=== PATIENT | female | born 1985 | race African-American/Black ===

== ENCOUNTER 2017-03-17 11:56 | Emergency (ER) | payer OTHER ==
[~2017-03-17] VITALS: Ht 154.9 cm; Wt 90.9 kg
[~2017-03-17 11:56] MED LIST: DEPA500T PO
[2017-03-17 11:58] VITALS: BP 143/94; PULSE 88; RESP 20; TEMP 98.9; O2SAT 99
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
[2017-03-17] MEDS ORDERED: MICO2CRE34 TOPICAL (12:56)
[2017-03-17] MEDS ORDERED: BACT2OIN TOPICAL (12:56)
--- NOTE | 2017-03-17 13:10 | PD ---
HPI Chief Complaint: Psychiatric Symptoms Time Seen by Provider: 13:05 Travel History International Travel<30 days: No Contact w/Intl Traveler<30days: No Traveled to known affect area: No History of Present Illness HPI 31-year-old female that presents to the ED for evaluation of rash to her tights as well as psych evaluation. Patient reports that for the past week she's been having a rash that is somewhat painful and itchy on her inner thighs. Per patient she's not sure this is related to her legs rubbing against each other or an infection or something else. Per patient the room getting better and that she's been applying OTC creams. She denies any injuries. No fevers chills or sweats. Per patient she is also here because she's been having issues secondary to her cheating on her. Apparently she is concerned that the mother of the girlfriend my be drained to come against her. She will likely to talk to him "better appears ". Per patient she was to be evaluated by psychiatry. She does have a history of anxiety. She denies any other medical process. No homicidal or suicidal ideation. Patient just wants to talk to psychiatry. Pain per patient is 2 out of 10 with touch. PFSH Past Medical History Anxiety: Yes Diminished Hearing: No Schizophrenia: Yes ?: Not LMP: 03/10/2017 : 2 : 2 Past Surgical History Abdominal Surgery: Yes (HERNIA REPAIR x 2) Other Surgery: Yes (HERNIA SURGERY X2) Social History Alcohol Use: No Tobacco Use: No Substance Use: No Allergies-Medications (Allergen,Severity, Reaction): Coded Allergies: Phenergan (Verified Allergy, Severe, Tachycardia, 03/17/17) Reported Meds & Prescriptions Reported Meds & Active Scripts Active Miconazole Topical 2% Cream 1 Applic TOPICAL BID 14 Days Bactroban Topical (Mupirocin) 2% Oint 1 Appl TOPICAL BID [address] (Divalproex Sodium) 500 Mg Tabdr 500 Mg PO BID Review of Systems Except as stated in HPI: all other systems reviewed are Neg Physical Exam Narrative GENERAL: SKIN: Warm and dry. HEAD: Atraumatic. Normocephalic. EYES: Pupils equal and round. No scleral icterus. No injection or drainage. ENT: No nasal bleeding or discharge. Mucous membranes pink and moist. Tongue is midline. No uvula deviation. NECK: Trachea midline. No JVD. CARDIOVASCULAR: Regular rate and rhythm. No murmurs, S3, S4. RESPIRATORY: No accessory muscle use. Clear to auscultation. Breath sounds equal bilaterally. GASTROINTESTINAL: Abdomen soft, non-tender, nondistended. Hepatic and splenic margins not palpable. MUSCULOSKELETAL: Extremities without clubbing, cyanosis, or edema. No obvious deformities. Full range of motion of the upper and lower extremities bilaterally. 2+ pulses bilaterally. Patient does have what appears to be a pruritic rash on the inner thighs bilaterally. More significant on the left side. Almost appears to follow the follicles of the hair and does have a look of scratching as well as possible insect bites. Somewhat tender also pruritic. No sign of purulence or mass. Not noted anywhere else. NEUROLOGICAL: Awake and alert. No obvious cranial nerve deficits. Motor grossly within normal limits. Five out of 5 muscle strength in the arms and legs. Normal speech. PSYCHIATRIC: Appropriate mood and affect; insight and judgment normal. Data Data Last Documented VS Vital Signs Date Time Temp Pulse Resp B/P Pulse Ox O2 Delivery O2 Flow Rate FiO2 03/17/17 11:58 98.9 88 20 143/94 99 Room Air Orders Psych Screen (03/17/17 12:56) Diet Regular Basic (03/17/17 Dinner) MDM Medical Decision Making Medical Screen Exam Complete: Yes Emergency Medical Condition: Yes Medical Record Reviewed: Yes Differential Diagnosis Depression versus suicidal ideation versus anxiety versus adjustment disorder versus mood disorder versus bipolar disorder versus schizophrenia versus paranoid disorder versus psychosis versus substance abuse versus alcohol abuse versus alcohol induced psychosis versus homicidality addition versus cutting versus personality disorder versus tinea corporis versus folliculitis Narrative Course 31-year-old female that presents to the ED for evaluation of psych as well as skin rash. Patient was properly examined and was found to have signs and symptoms which appear to be consistent with dermatitis possible fungal versus folliculitis. I will prescribe patient ointment for miconazole topical and Bactroban. In addition patient reports that she would like to talk to psychiatry. She comes here voluntarily. She has no suicidal or homicidal ideation. Psych screening was over and she would like to have it. Psych screening order. Patient was medically clear. I do not see any need for labs. Okay to be seen by psych. Mental health screening was discussed with the patient. Diagnosis Primary Impression: Anxiety Additional Impression: Dermatitis Scripts Miconazole Topical 2% Cream1 Applic TOPICAL BID 14 Days Ref 0 Prov:Coleman Mix MD 03/17/17 Mupirocin Topical (Bactroban Topical)2% Oint1 Appl TOPICAL BID 14 Days Prov:Coleman Mix MD 03/17/17 Reji Moy Mar 17, 2017 13:10
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
== END 2017-03-17 21:50 | disposition home or self-care (01) ==
LOC: NEPD 11:56
DX: F41.9 Anxiety disorder, unspecified (principal); L30.9 Dermatitis, unspecified
CPT/HCPCS: 99284

== ENCOUNTER 2017-03-19 00:28 | Emergency (ER) | payer OTHER ==
[~2017-03-19 00:28] MED LIST changes: +BACT2OIN TOPICAL; +MICO2CRE34 TOPICAL
[2017-03-19 00:30] VITALS: BP 130/79; PULSE 94; RESP 18; TEMP 98.5; O2SAT 99
[2017-03-19 01:38] LABS: AUTOMATED NEUTROPHIL # 4.8 TH/MM3 (1.8-7.7); BASOPHIL % 0.3 % (0.0-2.0); EOSINOPHIL % 0.3 % (0.0-4.0); HEMATOCRIT 36.4 % (35.0-46.0); HEMO FLAGS DIFF FINAL; LYMPH % 17.7 % (9.0-44.0); LYMPHOCYTE # 1.1 TH/MM3 (1.0-4.8); MEAN CELL VOLUME 86.5 FL (80.0-100.0); MEAN CORPUSCULAR HEMOGLOBIN 29.7 PG (27.0-34.0); MEAN CORPUSCULAR HGB CONC 34.3 % (32.0-36.0); MONO % 5.8 % (0.0-8.0); NEUT % 75.9 % (16.0-70.0); PLATELET COUNT 283 TH/MM3 (150-450); RED CELL DISTRIBUTION WIDTH 12.8 % (11.6-17.2); WHITE BLOOD COUNT 6.3 TH/MM3 (4.0-11.0)
[2017-03-19 01:49] LABS: ALT (GPT) 14 U/L (10-53); ANION GAP 9 MEQ/L (5-15); AST (GOT) 16 U/L (15-37); BICARBONATE 24.8 MEQ/L (21.0-32.0); BLOOD UREA NITROGEN 9 MG/DL (7-18); CHLORIDE 106 MEQ/L (98-107); GLOMERULAR FILTRATION RATE 80 ML/MIN (>89); POTASSIUM 3.7 MEQ/L (3.5-5.1); SODIUM (NA) 140 MEQ/L (136-145)
[2017-03-19 01:59] LABS: ACETAMINOPHEN LESS THAN 2.0 MCG/ML (10.0-30.0); ALKALINE PHOSPHATASE 44 U/L (45-117); TOTAL BILIRUBIN ADULT 0.4 MG/DL (0.2-1.0)
[2017-03-19 02:06] LABS: AMPHETAMINE, URINE NEG (NEG); BARBITURATES, URINE NEG (NEG); COCAINE, URINE NEG (NEG)
--- NOTE | 2017-03-19 03:26 | PD ---
HPI Chief Complaint: Suicide Ideation/Attempt Time Seen by Provider: 01:31 Travel History International Travel<30 days: No Contact w/Intl Traveler<30days: No Traveled to known affect area: No History of Present Illness HPI The patient is 31 years old. She was brought in by [facility]. She reports having high levels of anxiety and suicidal ideation as well. Evidently her has been provoking anxiety. She endorses a mechanism of shooting herself with a gun. Location neuropsychiatric. Severity moderate. Timing constant PFSH Past Medical History Bipolar Disorder: Yes Anxiety: Yes Depression: Yes Diminished Hearing: No Psychiatric: Yes (PTSD) Schizophrenia: Yes Thyroid Disease: Yes ?: Unknown : 2 : 2 Past Surgical History Abdominal Surgery: Yes (HERNIA REPAIR x 2) Other Surgery: Yes (HERNIA SURGERY X2) Social History Alcohol Use: No Tobacco Use: No Substance Use: No Allergies-Medications (Allergen,Severity, Reaction): Coded Allergies: Phenergan (Verified Allergy, Severe, Tachycardia, 03/17/17) Reported Meds & Prescriptions Reported Meds & Active Scripts Active Miconazole Topical 2% Cream 1 Applic TOPICAL BID 14 Days Bactroban Topical (Mupirocin) 2% Oint 1 Appl TOPICAL BID [address] (Divalproex Sodium) 500 Mg Tabdr 500 Mg PO BID Review of Systems Except as stated in HPI: all other systems reviewed are Neg Physical Exam Narrative GENERAL: 31 yo F, anxious, WNWD SKIN: Warm and dry. HEAD: Atraumatic. Normocephalic. EYES: Pupils equal and round. No scleral icterus. No injection or drainage. ENT: No nasal bleeding or discharge. Mucous membranes pink and moist. NECK: Trachea midline. No JVD. CARDIOVASCULAR: Regular rate and rhythm. RESPIRATORY: No accessory muscle use. Clear to auscultation. Breath sounds equal bilaterally. GASTROINTESTINAL: Abdomen soft, non-tender, nondistended. Hepatic and splenic margins not palpable. MUSCULOSKELETAL: Extremities without clubbing, cyanosis, or edema. No obvious deformities. NEUROLOGICAL: Awake and alert. No obvious cranial nerve deficits. Motor grossly within normal limits. Five out of 5 muscle strength in the arms and legs. Normal speech. PSYCHIATRIC: Cooperative initially. +HI/SI. Data Data Last Documented VS Vital Signs Date Time Temp Pulse Resp B/P Pulse Ox O2 Delivery O2 Flow Rate FiO2 4/24/17 00:30 98.5 94 18 130/79 99 Orders Complete Blood Count With Diff (03/19/17 00:47) Comprehensive Metabolic Panel (03/19/17 00:47) Thyroid Stimulating Hormone (03/19/17 00:47) Ed Urine Pregnancytest Poc (03/19/17 00:47) Psych Screen (03/19/17 00:47) Drug Screen, Random Urine (03/19/17 00:47) Alcohol (Ethanol) (03/19/17 00:47) Salicylates (Aspirin) (03/19/17 00:47) Tylenol (Acetaminophen) (03/19/17 00:47) Free Thyroxine (T4) (03/19/17 03:00) Labs Laboratory Tests Test 03/19/17 03/19/17 01:17 01:45 White Blood Count 6.3 TH/MM3 Red Blood Count 4.20 MIL/MM3 Hemoglobin 12.5 GM/DL Hematocrit 36.4 % Mean Corpuscular Volume 86.5 FL Mean Corpuscular Hemoglobin 29.7 PG Mean Corpuscular Hemoglobin 34.3 % Concent Red Cell Distribution Width 12.8 % Platelet Count 283 TH/MM3 Mean Platelet Volume 8.0 FL Neutrophils (%) (Auto) 75.9 % Lymphocytes (%) (Auto) 17.7 % Monocytes (%) (Auto) 5.8 % Eosinophils (%) (Auto) 0.3 % Basophils (%) (Auto) 0.3 % Neutrophils # (Auto) 4.8 TH/MM3 Lymphocytes # (Auto) 1.1 TH/MM3 Monocytes # (Auto) 0.4 TH/MM3 Eosinophils # (Auto) 0.0 TH/MM3 Basophils # (Auto) 0.0 TH/MM3 CBC Comment DIFF FINAL Differential Comment Sodium Level 140 MEQ/L Potassium Level 3.7 MEQ/L Chloride Level 106 MEQ/L Carbon Dioxide Level 24.8 MEQ/L Anion Gap 9 MEQ/L Blood Urea Nitrogen 9 MG/DL Creatinine 0.99 MG/DL Estimat Glomerular Filtration 80 ML/MIN Rate Random Glucose 107 MG/DL Calcium Level 9.2 MG/DL Total Bilirubin 0.4 MG/DL Aspartate Amino Transf 16 U/L (AST/SGOT) Alanine Aminotransferase 14 U/L (ALT/SGPT) Alkaline Phosphatase 44 U/L Total Protein 7.5 GM/DL Albumin 3.2 GM/DL Free Thyroxine 1.35 NG/DL Thyroid Stimulating Hormone 0.077 uIU/ML 3rd Gen Salicylates Level LESS THAN 1.7 MG/DL Acetaminophen Level LESS THAN 2.0 MCG/ML Ethyl Alcohol Level LESS THAN 3 MG/DL Urine Opiates Screen NEG Urine Barbiturates Screen NEG Urine Amphetamines Screen NEG Urine Benzodiazepines Screen NEG Urine Cocaine Screen NEG Urine Cannabinoids Screen NEG MDM Medical Decision Making Medical Screen Exam Complete: Yes Emergency Medical Condition: Yes Differential Diagnosis Altered mental status/psychosis due to infection/environmental exposure/ metabolic abnormality, polypharmacy, alcohol abuse/intoxication, illicit or prescribed drug abuse, malingering/secondary gain, non-organic psychiatric disease Narrative Course CBC & BMP Diagram 03/19/17 01:17 LFTs are normal TSH 0.077 Thyroxine is 1.35 Utox: pulido-negative The patient has a subclinical hyperthyroidism which is unlikely to be related to today's presentation. The history of present illness, ROS, physical exam, review of records and medical workup performed for today's visit have reasonably safely excluded organic etiologies for the patient's presenting complaint. We will continue to monitor the patient carefully in the ER until time of evaluation by the psychiatry service. We are available for any additional medical assistance if needed during the patient's ER course. Disposition per discretion of psychiatry is appreciated. Diagnosis Primary Impression: Anxiety Additional Impression: Suicidal ideation Sergio Kraft MD Mar 19, 2017 03:26
== END 2017-03-19 13:48 | disposition home or self-care (01) ==
LOC: NEPE 00:28
DX: F41.9 Anxiety disorder, unspecified (principal); R45.851 Suicidal ideations; E05.80 Other thyrotoxicosis without thyrotoxic crisis or storm; Z86.59 Personal history of other mental and behavioral disorders
CPT/HCPCS: 80053; 80164; 80307; 84439; 84443; 84703; 85025; 99285

== ENCOUNTER 2017-09-18 15:01 | Emergency (ER) | payer OTHER ==
[2017-09-18 15:09] VITALS: BP 133/83; PULSE 85; RESP 12; TEMP 98.2; O2SAT 98
--- NOTE | 2017-09-18 15:31 | PD ---
Physical Exam Date Seen by Provider: Sep 18, 2017 Time Seen by Provider: 15:27 Narrative 32-year-old female since the emergency department with cramping , and diarrhea for the past 5 days. Patient denies urinary symptoms. LMP June 28. Patient has no fever. Pain is waxing and waning with at worst 10 over 10. Illness course: Diarrhea, followed by cramps nausea and vomiting. She is allergic to promethazine. Data Data Last Documented VS Vital Signs Date Time Temp Pulse Resp B/P (MAP) Pulse Ox O2 Delivery O2 Flow Rate FiO2 09/18/17 15:09 98.2 85 12 133/83 (100) 98 MDM Medical Record Reviewed: Yes Supervised Visit with LEOBARDO: Yes Narrative Course Vital signs are reviewed. Urinalysis is ordered. Patient awaiting med bed placement. Condition: Stable Partha Mclean Sep 18, 2017 15:31
[2017-09-18 16:19] LABS: BACTERIA, URINE OCC /hpf; BLOOD, URINE NEG (NEG); COMMENT (UR) CULT NOT INDICATED; CULTURE IF INDICATED CULT NOT INDICATED; GLUCOSE,URINE NEG (NEG); KETONE, URINE NEG (NEG); NITRITE,URINE NEG (NEG); SQUAMOUS EPITHELIAL CELL URINE 4 /hpf (0-5); URINE COLOR YELLOW (YELLW/STRAW)
[2017-09-18] MEDS ORDERED: KETOROLAC TROMETHAMINE 30 MG/ML (IVP) VIAL IV PUSH ONE (19:45)
[2017-09-18] MEDS ORDERED: ONDANSETRON HCL 4 MG/2 ML VIAL IV ONE (19:45)
[2017-09-18] MEDS ORDERED: SODIUM CHLOR 0.9% 1000 ML INJ 1,000 ML IV ONE (19:45)
[2017-09-18] MEDS ORDERED: ZOFR4TAB3 SL ×2 (19:48→21:53)
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
[2017-09-18 19:51] VITALS: BP 135/78; PULSE 89; RESP 18; O2SAT 99
[2017-09-18 20:28] LABS: AUTOMATED NEUTROPHIL # 4.3 TH/MM3 (1.8-7.7); BASOPHIL % 0.3 % (0.0-2.0); EOSINOPHIL # 0.2 TH/MM3 (0-0.4); EOSINOPHIL % 2.2 % (0.0-4.0); HEMATOCRIT 42.3 % (35.0-46.0); HEMO FLAGS DIFF FINAL; LYMPH % 37.4 % (9.0-44.0); LYMPHOCYTE # 2.9 TH/MM3 (1.0-4.8); MEAN CELL VOLUME 88.6 FL (80.0-100.0); MEAN CORPUSCULAR HEMOGLOBIN 29.6 PG (27.0-34.0); MEAN CORPUSCULAR HGB CONC 33.4 % (32.0-36.0); MONO % 4.5 % (0.0-8.0); NEUT % 55.6 % (16.0-70.0); PLATELET COUNT 247 TH/MM3 (150-450); RED BLOOD COUNT 4.77 MIL/MM3 (4.00-5.30); RED CELL DISTRIBUTION WIDTH 12.2 % (11.6-17.2); WHITE BLOOD COUNT 7.7 TH/MM3 (4.0-11.0)
[2017-09-18 20:42] LABS: ANION GAP 6 MEQ/L (5-15); AST (GOT) 11 U/L (15-37); BICARBONATE 27.3 MEQ/L (21.0-32.0); BLOOD UREA NITROGEN 8 MG/DL (7-18); CHLORIDE 105 MEQ/L (98-107); GLOMERULAR FILTRATION RATE 76 ML/MIN (>89); MAGNESIUM 1.7 MG/DL (1.5-2.5); POTASSIUM 3.3 MEQ/L (3.5-5.1); SODIUM (NA) 138 MEQ/L (136-145)
[2017-09-18 20:43] LABS: ALT (GPT) 16 U/L (10-53)
[2017-09-18 20:46] LABS: ALKALINE PHOSPHATASE 53 U/L (45-117); TOTAL BILIRUBIN ADULT 0.3 MG/DL (0.2-1.0)
[2017-09-18] MEDS ORDERED: POTASSIUM CHLORIDE 20 MEQ CONTROLLED RELEASE TAB PO ONE (21:00)
[2017-09-18] MEDS ORDERED: POTASSIUM CHLORIDE 25 MEQ EFFERVESCENT TAB PO ONE (21:30)
--- NOTE | 2017-09-18 21:51 | RADRPT ---
EXAM DATE/TIME: 09/18/2017 21:19 [place] COMPARISON: No previous studies available for comparison. INDICATIONS : Entire abdominal pain. MEDICAL HISTORY : None. SURGICAL HISTORY : None. ENCOUNTER: Initial ACUITY: 4 - 6 days PAIN SCORE: 6/10 LOCATION: Bilateral abdomen FINDINGS: The bowel gas is nonspecific. There are no signs of obstruction or free air for technique. No defini te calcified stones are identified for technique. Moderate stool is present throughout the colon. CONCLUSION: Unremarkable study except for stool. Aaron Gómez MD on September 18, 2017 at 21:49 Board Certified Radiologist. This report was verified electronically.
== END 2017-09-18 22:39 | disposition home or self-care (01) ==
LOC: NEPC 15:01
DX: R10.84 Generalized abdominal pain (principal); R19.7 Diarrhea, unspecified; F31.9 Bipolar disorder, unspecified; F43.10 Post-traumatic stress disorder, unspecified; F20.9 Schizophrenia, unspecified
CPT/HCPCS: 74020; 80053; 81001; 83690; 83735; 84703; 85025; 86140; 96361; 96374; 96375; 99284; J1885; J2405; J7030